=== PATIENT | female | born 1990 | race Two or more races ===

== ENCOUNTER 2016-08-31 10:21 | Day surgery (SDC) | payer OTHER ==
[2016-08-31 10:53] LABS: HEMATOCRIT 41.3 % (36.0-47.0); HEMOGLOBIN 14.1 g/dL (12.0-15.5); MEAN CORPUSCULAR HEMOGLOBIN 28.4 pg (27.0-33.4); MEAN CORPUSCULAR HGB CONC 34.1 g/dL (32.0-36.0); MEAN CORPUSCULAR VOLUME 84 fl (80-97); RED BLOOD COUNT 4.95 10^6/uL (3.72-5.28); RED CELL DISTRIBUTION WIDTH 13.4 % (11.5-14.0); WHITE BLOOD COUNT 8.8 10^3/uL (4.0-10.5)
[2016-08-31 10:58] LABS: APPEARANCE,URINE SLIGHTLY-CLOUDY; BILIRUBIN,URINE NEGATIVE (NEGATIVE); GLUCOSE, URINE NEGATIVE (NEGATIVE); KETONES,URINE TRACE mg/dL (NEGATIVE); LEUKOCYTE ESTERASE,URINE NEGATIVE (NEGATIVE); NITRITE,URINE NEGATIVE (NEGATIVE); PROTEIN,URINE NEGATIVE (NEGATIVE); URINE SPECIFIC GRAVITY 1.016; UROBILINOGEN,URINE NEGATIVE mg/dL (<2.0)
[2016-08-31] MEDS ORDERED: ONDANSETRON HCL INJ/PF 4 MG/2 ML SDV IV PRN (11:11)
[2016-08-31] MEDS ORDERED: SCOPOLAMINE HYDROBROMIDE 1.5 MG PATCH.TD72 TD PRN (11:12)
[2016-08-31] MEDS ORDERED: CEFAZOLIN 1 GM/D5W RTU 1 GM/50 ML RTUPB IV PRN (11:13)
[2016-08-31] MEDS ORDERED: ACETAMINOPHEN 100 ML IV PRN (11:13)
[2016-08-31] MEDS ORDERED: CEFAZOLIN 1 GM/D5W RTU 1 GM/50 ML RTUPB IV ONE (11:17)
[2016-08-31] MEDS ORDERED: ONDANSETRON HCL INJ/PF 4 MG/2 ML SDV ONE ×2 (11:17→12:18)
[2016-08-31] MEDS ORDERED: ACETAMINOPHEN 100 ML IV ONE (11:18)
[2016-08-31] MEDS ORDERED: SCOPOLAMINE HYDROBROMIDE 1.5 MG PATCH.TD72 ONE (11:18)
[2016-08-31] MEDS ORDERED: BUPIVACAINE HCL 0.25% /EPINEPHRINE INJ/PF 30 ML SDV ONE (12:01)
[2016-08-31] MEDS ORDERED: BUPIVACAINE INJ/PF LIPOSOME/PF 266 MG/20 ML SDV ONE (12:01)
[2016-08-31] MEDS ORDERED: FENTANYL CITRATE INJ/PF 100 MCG/2 ML AMPUL ONE ×2 (12:17)
[2016-08-31] MEDS ORDERED: DEXAMETHASONE SOD PHOSPHATE INJ 4 MG/1 ML VIAL ONE (12:18)
[2016-08-31] MEDS ORDERED: PROPOFOL INJ 200 MG/20 ML VIAL IV ONE (12:18)
[2016-08-31] MEDS ORDERED: MIDAZOLAM 2 MG/2 ML INJ ONE (12:18)
[2016-08-31] MEDS ORDERED: MORPHINE SULFATE 10 MG/ML INJ IV PRN (13:56)
[2016-08-31] MEDS ORDERED: PROMETHAZINE HCL INJ 25 MG/1 ML VIAL IV PRN ×2 (13:56)
[2016-08-31] MEDS ORDERED: FENTANYL CITRATE INJ/PF 100 MCG/2 ML AMPUL IV PRN ×3 (13:56)
[2016-08-31] MEDS ORDERED: OXYCODONE-ACETAMINOPHEN 5-325 MG TABLET PO PRN ×2 (13:56)
[2016-08-31] MEDS ORDERED: DIPHENHYDRAMINE HCL 50 MG/ML VIAL IV PRN (13:56)
[2016-08-31] MEDS ORDERED: MEPERIDINE HCL/PF INJ 25 MG/1 ML DISP.SYRIN IV PRN (13:56)
[2016-08-31] MEDS ORDERED: HYDROMORPHONE HCL INJ/PF 2 MG/ML AMPULE IV PRN (14:33)
[2016-08-31] MEDS ORDERED: RINGERS SOLUTION,LACTATED 1,000 ML IV PRN (14:34)
[2016-08-31] MEDS ORDERED: IBUPROFEN 800 MG TABLET PO PRN (14:35)
[2016-08-31] MEDS ORDERED: OXYCODONE HCL IR 5 MG TABLET PO PRN ×2 (14:37→14:38)
--- NOTE | 2016-08-31 14:38 | OPERATIVE REPORT E ---
Operative Report NAME: PEPPER SENIOR : 1990 AGE: 26Y DATE OF SURGERY: 08/31/2016 ROOM: PREOPERATIVE DIAGNOSIS: Recurrent Bartholin gland cyst on left. POSTOPERATIVE DIAGNOSIS: Recurrent Bartholin gland cyst on left. OPERATION PERFORMED: Marsupialization of Bartholin gland cyst. SURGEON: KAN REYNOLDS M.D. ANESTHESIA: General via laryngeal mask. ESTIMATED BLOOD LOSS: 30 mL. SPECIMEN TO PATHOLOGY: Biopsy of Bartholin cyst wall near surface. FINDINGS: There was approximately a 5 cm Bartholin cyst with multiple tracts within it. This contained cloudy fluid. DESCRIPTION OF PROCEDURE: After discussing risks, benefits, and alternatives of the procedure and obtaining informed consent, the patient was taken to the operating room. The vulvar tissue overlying the Bartholin cyst at the vestibule was grasped with Allis clamps. The area to be incised and surrounding it was injected with a mixture of Exparel and 0.25% Marcaine with epinephrine. A total of 10 mL of this mixture was used. Using a #15 blade, approximately a 3 cm incision was made overlying the cyst. The cyst was drained. Loculations were lysed with cautery and Metzenbaum scissors as well as traction. The cyst wall was marsupialized to the vulvar and vaginal mucosal surfaces with 2-0 and 3-0 Vicryl. The cavity of the cyst was irrigated thoroughly. The cyst was then packed with some new gauze. After ensuring hemostasis, the patient was extubated and taken to recovery. Counts were correct. DICTATING PHYSICIAN: KAN REYNOLDS M.D. [id number] PHY#: [id number] ID: [id number] JOB#: [id number] ACCT: [id number] cc:KAN REYNOLDS M.D. > MTDD
[2016-08-31 15:46] VITALS: BP 99/65
== END 2016-08-31 16:00 | disposition home or self-care (01) ==
LOC: OROUT 10:21
PROVIDERS: ATTEND Specialist
PROC: 0UBL0ZZ Excision of Vestibular Gland, Open Approach (ICD-10-PCS; principal; 2016-08-31 12:45)
DX: N75.0 Cyst of Bartholin's gland (principal)
CPT/HCPCS: 36415; 87070; 87205; 85027; 81025; 87075; 81001; 88305 ×2; 56440; J2250; J3490; J0690; J1100; J3010; J2405; J2704; J0131; C9290; 940